=== PATIENT | female | born 1970 | race Caucasian/White ===

== ENCOUNTER 2019-03-31 12:27 | Emergency (ER) | payer OTHER ==
[~2019-03-31] VITALS: Ht 172.7 cm; Wt 120.2 kg
[~2019-03-31 12:27] MED LIST: ALLEGRA ALLERGY60 MG PO; ALPRAZOLAM ER1 MG PO; BUPROPION XL300 MG PO; GLUCOPHAGE500 MG PO; LISINOPRIL-HCT1 EAC1 PO; PERCOCET 5-3251 EACH PO; PLAVIX75 MG PO; SERTRALINE HCL100 MG PO; TRAZODONE HCL100 MG PO; XANAX0.5 MG PO
--- OUTSIDE RECORDS SUMMARY | 2019-03-31 12:30 | XMS ---
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 [facility] VISIT COUNT (12 MO.) 1 ALYSON Miller TOTAL 1 NOTE: Visits indicate total known visits. ED/UCC VISIT TRACKING (12 MO.) 03/31/2019 12:27 [facility] Brown OR TYPE: Emergency COMPLAINT: - CHEST PAIN, SOB INPATIENT VISIT TRACKING (12 MO.) No inpatient visits to display in this time frame [id number]
--- NOTE | 2019-03-31 15:34 | EKG ---
[facility] [address] [facility] [place], [place] [address] Signed Sinus rhythm with occasional premature ventricular complexes Otherwise normal ECG No previous ECGs available Confirmed by EFRAIN SUTTON DO ([id number]) on 03/31/2019 3:34:07 PM Electronically Signed By: EFRAIN SUTTON DO 03/31/19 1534 PATIENT NAME: FEI STARK DENISE Electrocardiogram DATE OF : 68 PHYSICIAN: EFRAIN SUTTON DO REPORT #: [id number] REPORT IS CONFIDENTIAL AND NOT TO BE RELEASED WITHOUT AUTHORIZATION
== END 2019-03-31 14:56 | disposition home or self-care (01) ==
LOC: ED 12:27
DX: F41.9 Anxiety disorder, unspecified (principal); R07.9 Chest pain, unspecified; I10 Essential (primary) hypertension; F32.9 Major depressive disorder, single episode, unspecified; F43.10 Post-traumatic stress disorder, unspecified; E11.9 Type 2 diabetes mellitus without complications; Z88.0 Allergy status to penicillin; Z88.6 Allergy status to analgesic agent; Z88.8 Allergy status to other drugs, medicaments and biological substances; Z88.1 Allergy status to other antibiotic agents; Z79.899 Other long term (current) drug therapy
CPT/HCPCS: 71045; 80053; 83735; 84484; 85025; 93005; 93010; 99285-25